=== PATIENT | female | born 1960 | race Caucasian/White ===

== ENCOUNTER → 2017-11-13 | Outpatient (CLI) | payer OTHER ==
[~2017-11-13] MED LIST: ACEBUTCAFT PO; ALBU90OI INH; AMOCLA875 PO; ASCO1ER PO; ATEN100 PO; ATEN25 PO; ATEN50 PO; ATOR10 PO; Apap-Butalbita1 EACH PO; Atenolol25 MG PO; BISA10S PR; BISHYD10; BISHYD10 PO; BUSP5 PO; CEPH500 PO; CETI10 PO; CIPHYDOTSU RIGHTEAR; CITA20 PO; CLIN300 PO; CLON.1 PO; CLON.2 PO; CLON.2TP TOP; COMPAZINE10 MG PO; DOCCAL240 PO; DOCU100 PO; Dazidox10 MG PO; Duoneb 2.5-0.5 M3 ML IH; ESTNOR PO; ESTR2 PO; FLUO10 PO; FLUT.05NI; FURO20 PO; GABA600 PO; GABA800 PO; GLIM2 PO; Glucophage1000 MG PO; HYDACE10B PO; HYDACE5 PO; HYDACE5325 PO; IBUP800 PO; INS70/30PN SC; INSUASPI SC; INSULANI SC; INSULANPEN SC; IRBE150 PO; LIDO2L MM; LINE600 PO; MAGN84 PO; MELA3 PO; METF500; METF500 PO; METH10 PO; MONT10T PO; MULTI VITAMIN1 EACH PO; Mobic15 MG PO; NYST100SU PO; OMEP20ER PO; OXYACE5T PO; OXYC30ER PO; OXYC5 PO; Oxycodone HCl5 M1; PENVK500 PO; PIOG15 PO; POLY17UD PO; POTCHL10ER PO; PROC10 PO; PROM25 PO; PROM25S PR; PSEUDOGEST; PSYL5.85P PO; Prilosec Otc20 MG PO; RANI150 PO; RXHYDACE PO; Restoril30 MG PO; SIME80CH PO; SULTRIDS PO; Senna8.6 MG PO; TEMA15 PO; TEMA30 PO; TOCO1000 PO; Vitamin C100 M1 PO; ZINC15 PO; [UNRECOGNIZED DRUG - OTHER] PO; furosemide
== END | disposition home or self-care (01) ==
LOC: LAB EV 15:19
DX: L08.9 Local infection of the skin and subcutaneous tissue, unspecified (principal)
CPT/HCPCS: 87070; 87205

== ENCOUNTER → 2017-12-23 | Outpatient (CLI) | payer OTHER ==
[~2017-12-23] MED LIST changes: -Atenolol25 MG PO; -Mobic15 MG PO
== END | disposition home or self-care (01) ==
LOC: LAB 13:30 → LAB SHORT 13:30
DX: H60.91 Unspecified otitis externa, right ear (principal)
CPT/HCPCS: 87070; 87077; 87102; 87147; 87186; 87205; 87252; 87254

== ENCOUNTER → 2018-03-04 | Outpatient (CLI) | payer OTHER | LOC: LAB SHORT 18:07 → LAB 18:07 | DX: H60.63 Unspecified chronic otitis externa, bilateral (principal); H66.93 Otitis media, unspecified, bilateral | CPT/HCPCS: 87070; 87205 ==

== ENCOUNTER 2018-06-09 21:54 | Emergency (ER) | payer OTHER ==
[~2018-06-09] VITALS: Ht 165.1 cm; Wt 128.8 kg
[2018-06-09] MEDS ORDERED: BUSP5 PO (23:19)
[2018-06-09] MEDS ORDERED: Mobic15 MG PO (23:20)
[2018-06-09] MEDS ORDERED: TEMA30 PO (23:20)
[2018-06-09] MEDS ORDERED: Atenolol25 MG PO (23:21)
== END 2018-06-10 00:10 | disposition home or self-care (01) ==
LOC: ER 21:54
DX: S61.412A Laceration without foreign body of left hand, initial encounter (principal); E11.9 Type 2 diabetes mellitus without complications; Z79.899 Other long term (current) drug therapy; Z79.4 Long term (current) use of insulin; W26.8XXA Contact with other sharp object(s), not elsewhere classified, initial encounter
CPT/HCPCS: 12001; 99282

== ENCOUNTER 2018-12-29 13:11 | Observation (INO) | payer OTHER ==
[~2018-12-29] VITALS: Ht 165.1 cm; Wt 159.0 kg
[~2018-12-29 13:11] MED LIST changes: -ALBU90OI INH; -ATOR10 PO; +Atenolol25 MG PO; -Duoneb 2.5-0.5 M3 ML IH; -MULTI VITAMIN1 EACH PO; -OXYC5 PO; -PSYL5.85P PO; -Senna8.6 MG PO
[2018-12-29 16:21] LABS: BASOPHILS ABSOLUTE AUTO 0.07 K/mm3 (0.00-0.23); BASOPHILS PERCENT AUTO 1 % (0-2); EOSINOPHILS ABSOLUTE AUTO 0.13 K/mm3 (0.00-0.68); EOSINOPHILS PERCENT AUTO 1 % (0-6); Hematocrit 39.9 % (33.0-51.0); IMMATURE GRAN ABSOLUTE AUTO 0.09 K/mm3 (0.00-0.10); IMMATURE GRAN PERCENT AUTO 1 % (0-1); LYMPHOCYTES ABSOLUTE AUTO 1.43 K/mm3 (0.84-5.20); LYMPHOCYTES PERCENT AUTO 10 % (21-46); MONOCYTES ABSOLUTE AUTO 0.73 K/mm3 (0.16-1.47); MONOCYTES PERCENT AUTO 5 % (4-13); Mean Corpuscular HGB 29.9 pg (26.0-34.0); Mean Corpuscular HGB Conc 32.6 g/dL (31.5-36.5); Mean Corpuscular Volume 92 fL (80-100); Mean Platelet Volume 11.5 fL (9.1-12.4); NEUTROPHILS ABSOLUTE AUTO 12.15 K/mm3 (1.96-9.15); NEUTROPHILS PERCENT AUTO 83 % (41-73); Platelet Count 241 K/mm3 (150-400); RDW Coefficient Variation 12.7 % (11.7-14.2); RDW Standard Deviation 42.3 fL (35.1-46.3); Red Blood Cell Count 4.35 M/mm3 (3.80-5.20)
[2018-12-29 16:42] LABS: Alanine Aminotransfer (ALT/SGP 21 U/L (12-78); Albumin/Globulin Ratio 0.9 (0.8-1.8); Alk Phos 73 U/L (50-136); Anion Gap 11 mmol/L (6-16); Aspartate Aminotrans (AST/SGOT 13 U/L (12-37); Bilirubin, Total 0.3 mg/dL (0.1-1.0); Blood Urea Nitrogen 18 mg/dL (8-24); Bun/Creatinine Ratio 31.9 (12.0-20.0); CO2, Blood 27 mmol/L (21-32); Chloride, Blood 99 mmol/L (98-108); Creatinine, Blood 0.56 mg/dL (0.40-1.00); Globulin, Blood 3.4 g/dL (2.2-4.0); Glomerular Filtration Rate >60 (60-); Glucose, Blood 238 mg/dL (70-99); Sodium, Blood 137 mmol/L (136-145); Total Protein, Blood 6.4 g/dL (6.4-8.2)
[2018-12-29] MEDS ORDERED: ALBU90OI INH (18:09)
[2018-12-29] MEDS ORDERED: PANT40 PO (18:10)
[2018-12-29] MEDS ORDERED: Prozac40 MG PO (18:12)
[2018-12-29] MEDS ORDERED: ATEN100 PO (18:13)
[2018-12-29] MEDS ORDERED: CHLO25B PO (18:14)
[2018-12-29] MEDS ORDERED: Mobic15 MG PO (18:16)
[2018-12-29] MEDS ORDERED: Pseudoephedrine30 MG PO (18:16)
[2018-12-29] MEDS ORDERED: CHOL10002 PO (18:17)
[2018-12-29] MEDS ORDERED: MONT10T PO (18:18)
[2018-12-29] MEDS ORDERED: BASAGLAR K100 UNIT/1 SC (18:21)
[2018-12-29] MEDS ORDERED: GABA800 PO (18:21)
[2018-12-29] MEDS ORDERED: ATOR10 PO (18:22)
[2018-12-29] MEDS ORDERED: Metformin HCl500 MG PO (18:25)
[2018-12-29] MEDS ORDERED: CLON.1 PO (18:26)
[2018-12-29] MEDS ORDERED: OXYC5 PO (18:31)
[2018-12-29] MEDS ORDERED: TEMA30 PO (18:33)
[2018-12-29] MEDS ORDERED: ALBU2.5V5 NEB (18:39)
[2018-12-29] MEDS ORDERED: Senna8.6 MG PO (18:40)
[2018-12-29] MEDS ORDERED: MULTI VITAMIN1 EACH PO (18:40)
[2018-12-29] MEDS ORDERED: Novolog Fl100 UNIT/1 SC (18:44)
[2018-12-29] MEDS ORDERED: Metamucil Smooth1 EA PO (18:50)
--- NOTE | 2018-12-29 18:51 | NUR ---
PT ARRIVED TO UNIT FROM ED TRANSFERRED PT FROM [facility] TO BED. PT ABLE TO TURN SIDE TO SIDE WELL. REPORTS PAIN 7/10; MEDICATED PER ORDERS FOR LLE PAIN. ABLE TO WIGGLE TOES. PPP. KNEE IMMOBIZER IN PLACED. PT HAS DIME SIZED BRUISE TO R HIP. CALL LUNGS DIM IN BASES. RESPIRATIONS EASY ON 2L NC. HRR. BT X4. SPOUSE AT BEDSIDE.
[2018-12-29] MEDS ORDERED: AMLO5 PO (18:53)
[2018-12-30 04:30] LABS: BASOPHILS ABSOLUTE AUTO 0.04 K/mm3 (0.00-0.23); BASOPHILS PERCENT AUTO 0 % (0-2); EOSINOPHILS ABSOLUTE AUTO 0.18 K/mm3 (0.00-0.68); EOSINOPHILS PERCENT AUTO 2 % (0-6); Hematocrit 38.5 % (33.0-51.0); Hemoglobin 12.3 g/dL (11.5-16.0); IMMATURE GRAN ABSOLUTE AUTO 0.07 K/mm3 (0.00-0.10); IMMATURE GRAN PERCENT AUTO 1 % (0-1); LYMPHOCYTES ABSOLUTE AUTO 2.41 K/mm3 (0.84-5.20); LYMPHOCYTES PERCENT AUTO 24 % (21-46); MONOCYTES ABSOLUTE AUTO 0.89 K/mm3 (0.16-1.47); MONOCYTES PERCENT AUTO 9 % (4-13); Mean Corpuscular HGB Conc 31.9 g/dL (31.5-36.5); Mean Corpuscular Volume 94 fL (80-100); Mean Platelet Volume 11.4 fL (9.1-12.4); NEUTROPHILS ABSOLUTE AUTO 6.45 K/mm3 (1.96-9.15); NEUTROPHILS PERCENT AUTO 64 % (41-73); Platelet Count 234 K/mm3 (150-400); RDW Coefficient Variation 12.8 % (11.7-14.2); RDW Standard Deviation 43.8 fL (35.1-46.3); White Blood Cell Count 10.04 K/mm3 (4.00-11.30)
[2018-12-30 04:51] LABS: Alanine Aminotransfer (ALT/SGP 22 U/L (12-78); Albumin/Globulin Ratio 0.9 (0.8-1.8); Alk Phos 75 U/L (50-136); Anion Gap 10 mmol/L (6-16); Aspartate Aminotrans (AST/SGOT 12 U/L (12-37); Bilirubin, Total 0.5 mg/dL (0.1-1.0); Blood Urea Nitrogen 18 mg/dL (8-24); Bun/Creatinine Ratio 32.7 (12.0-20.0); CO2, Blood 31 mmol/L (21-32); Calcium, Blood 8.4 mg/dL (8.5-10.1); Chloride, Blood 100 mmol/L (98-108); Creatinine, Blood 0.55 mg/dL (0.40-1.00); Globulin, Blood 3.4 g/dL (2.2-4.0); Glomerular Filtration Rate >60 (60-); Glucose, Blood 168 mg/dL (70-99); Potassium, Blood 3.4 mmol/L (3.5-5.5); Sodium, Blood 141 mmol/L (136-145); Total Protein, Blood 6.4 g/dL (6.4-8.2)
--- NOTE | 2018-12-30 15:12 | NUR ---
Patient was lying in bed and alert when I entered the patient's room. Patient welcomed me to sit down after I introduced myself. Patient openly shared about her past addictions, her family unit complications and her alex. Patient owes all her strength, recovery and her hope to her God. I listened empathically, conducted a life review, provided pastoral student success counselor and provided prayer. I also provided patient witha large print Bible upon her request. Patient responded well to all interventions and stated that the prayer was very encouraging. Patient thanked me for the visit.
--- NOTE | 2018-12-30 18:08 | NUR ---
SHIFT SUMMARY PT HAD MRI COMPLETED TODAY. DR RAMOS TO TAKE OVER ORTHO CARE OF PATIENT. PAIN MANAGEMENT WAS A STRUGGLE BUT PATIENT DROWSY AT TIMES AND APPEARS COMFORTABLE WHEN VISITNG WITH FAMILY BUT NEVER RATES PAIN < 5/10. NEURO CHECKS WNL T/O SHIFT.
--- NOTE | 2018-12-31 04:43 | NUR ---
PT HAD NO ACUTE CHANGES T/O NIGHT. PAIN MGD PER EMAR, NEURO CHECKS UNCHANGED. SWELLING IS MORE IN UPPER THIGH VS LOWER LEG. PT DENIES CHANGES IN N/T, CAP REFILL BRISK. IMMOBILIZER IN PLACE, LLE ELEVATED IN BED. PT ASSISTING W/REPOSITIONING IN BED. PT USING 2LO2 NC PRN PER BASELINE, DENIES SOB. PT USING CALL LIGHT FOR ASSISTANCE, WILL CONT TO MONITOR UNTIL REP GIVEN TO ONCOMING RN.
[2018-12-31 05:58] LABS: BASOPHILS ABSOLUTE AUTO 0.06 K/mm3 (0.00-0.23); BASOPHILS PERCENT AUTO 1 % (0-2); EOSINOPHILS ABSOLUTE AUTO 0.21 K/mm3 (0.00-0.68); EOSINOPHILS PERCENT AUTO 2 % (0-6); Hematocrit 36.2 % (33.0-51.0); Hemoglobin 11.7 g/dL (11.5-16.0); IMMATURE GRAN ABSOLUTE AUTO 0.15 K/mm3 (0.00-0.10); IMMATURE GRAN PERCENT AUTO 1 % (0-1); LYMPHOCYTES ABSOLUTE AUTO 2.38 K/mm3 (0.84-5.20); LYMPHOCYTES PERCENT AUTO 22 % (21-46); MONOCYTES ABSOLUTE AUTO 1.14 K/mm3 (0.16-1.47); MONOCYTES PERCENT AUTO 11 % (4-13); Mean Corpuscular HGB 29.7 pg (26.0-34.0); Mean Corpuscular HGB Conc 32.3 g/dL (31.5-36.5); Mean Corpuscular Volume 92 fL (80-100); Mean Platelet Volume 11.6 fL (9.1-12.4); NEUTROPHILS ABSOLUTE AUTO 6.89 K/mm3 (1.96-9.15); NEUTROPHILS PERCENT AUTO 64 % (41-73); Platelet Count 188 K/mm3 (150-400); RDW Coefficient Variation 12.5 % (11.7-14.2); RDW Standard Deviation 41.9 fL (35.1-46.3); Red Blood Cell Count 3.94 M/mm3 (3.80-5.20); White Blood Cell Count 10.83 K/mm3 (4.00-11.30)
[2018-12-31 06:17] LABS: Anion Gap 6 mmol/L (6-16); Blood Urea Nitrogen 11 mg/dL (8-24); Bun/Creatinine Ratio 22.2 (12.0-20.0); CO2, Blood 35 mmol/L (21-32); Calcium, Blood 8.3 mg/dL (8.5-10.1); Chloride, Blood 94 mmol/L (98-108); Glomerular Filtration Rate >60 (60-); Glucose, Blood 195 mg/dL (70-99); Potassium, Blood 3.4 mmol/L (3.5-5.5); Sodium, Blood 135 mmol/L (136-145)
[2018-12-31] MEDS ORDERED: ACET325 PO (15:05)
[2018-12-31] MEDS ORDERED: Micro-K10 MEQ PO (15:06)
[2018-12-31] MEDS ORDERED: Humalog100 UNIT/1 SC (15:06)
[2018-12-31] MEDS ORDERED: GAVILAX17 GM PO (15:07)
--- NOTE | 2018-12-31 16:16 | NUR ---
I entered patient's room and found patient lying in bed and alert with her , Chris, bedside. Patient shared with me about the plans for discharge this day and then told me many stories of alex and their family. I provided inspirational quotes from the Bible, companionship and prayer. Patient and Bill responded well to all interventions and showed signs of renewed alex.
--- NOTE | 2018-12-31 19:07 | NUR ---
DISCHARGE PT DISCHARGED HOME AT APROX 1900. PT GIVEN WRITTEN AND VERBAL DISCHARGE INSTRUCTIONS AND VERBALIZED UNDERSTANDING. WRITTEN RX FOR PAIN MEDICATION GIVEN TO PT. WHEELCHAIR AND OTHER MEDICAL SUPPLIES PICKED UP BY . IV'S REMOVED, PT TOLERATED WELL. APPOINTMENTS FOR FOLLOW UP WITH DR RAMOS GIVEN TO PATIENT.
== END 2018-12-31 19:06 | disposition home or self-care (01) ==
LOC: ER 13:11 → SURS 13:12 → ERHOLD 13:12 → SURS 17:36
PROVIDERS: Emergency Medicine; ADMIT Family Medicine
DX: S83.195A Other dislocation of left knee, initial encounter (principal); S83.512A Sprain of anterior cruciate ligament of left knee, initial encounter; S83.522A Sprain of posterior cruciate ligament of left knee, initial encounter; I10 Essential (primary) hypertension; E11.9 Type 2 diabetes mellitus without complications; I25.10 Atherosclerotic heart disease of native coronary artery without angina pectoris; F32.9 Major depressive disorder, single episode, unspecified; F41.9 Anxiety disorder, unspecified; M19.90 Unspecified osteoarthritis, unspecified site; J45.909 Unspecified asthma, uncomplicated; E78.5 Hyperlipidemia, unspecified; E66.01 Morbid (severe) obesity due to excess calories; Z91.048 Other nonmedicinal substance allergy status; Z88.8 Allergy status to other drugs, medicaments and biological substances; Z88.5 Allergy status to narcotic agent; Z88.1 Allergy status to other antibiotic agents; Z91.018 Allergy to other foods; Z68.39 Body mass index [BMI] 39.0-39.9, adult; W00.0XXA Fall on same level due to ice and snow, initial encounter
CPT/HCPCS: 27550; 36415; 73552; 73560-LT; 73706; 73721; 80048; 80053; 82947; 85025; 87081; 96374-59; 96375-59; 97162; 97530; 99152; 99285-25; G0378; J1815; J2405; J3010; J7030; Q9967

== ENCOUNTER → 2019-07-14 | Outpatient (CLI) | payer OTHER ==
[~2019-07-14] MED LIST changes: +ACET325 PO; +ALBU2.5V5 NEB; +ALBU90OI INH; +AMLO5 PO; +ATOR10 PO; +BASAGLAR K100 UNIT/1 SC; +CHLO25B PO; +CHOL10002 PO; +GAVILAX17 GM PO; +Humalog100 UNIT/1 SC; +MULTI VITAMIN1 EACH PO; +Metamucil Smooth1 EA PO; +Metformin HCl500 MG PO; +Micro-K10 MEQ PO; +Mobic15 MG PO; +Novolog Fl100 UNIT/1 SC; +OXYC5 PO; +PANT40 PO; +Prozac40 MG PO; +Pseudoephedrine30 MG PO; +Senna8.6 MG PO
[2019-07-14 13:26] LABS: U Amphetamine Screen Not Detected; U Barbituate Screen Not Detected; U Benzodiazapine Screen DETECTED; U Cannabinoids Screen DETECTED; U Cocaine Screen Not Detected; U Methadone Screen Not Detected; U Methamphetamine Screen Not Detected; U Opiates Screen Not Detected; U Phencyclidine Screen Not Detected
[2019-07-14 13:27] LABS: U Buprenorphine Screen Not Detected; U Oxycodone Screen Not Detected; U Propoxyphene Screen Not Detected
== END | disposition home or self-care (01) ==
LOC: LAB SHORT 12:28 → LAB 12:28
PROVIDERS: Nurse Practitioner Family
DX: G89.4 Chronic pain syndrome (principal)
CPT/HCPCS: G0480

== ENCOUNTER → 2020-10-05 | Outpatient (CLI) | payer OTHER | END | disposition home or self-care (01) | LOC: LAB SHORT 09:30 → LAB 09:30 | DX: J34.89 Other specified disorders of nose and nasal sinuses (principal) | CPT/HCPCS: 87070; 87077; 87147; 87186 ==

== ENCOUNTER 2020-12-07 08:45 | Day surgery (SDC) | payer OTHER | END 2020-12-07 23:11 | disposition home or self-care (01) | LOC: MOI MAM 08:45 | DX: D24.2 Benign neoplasm of left breast (principal); R92.8 Other abnormal and inconclusive findings on diagnostic imaging of breast | CPT/HCPCS: 19081; 88305 ==

== ENCOUNTER → 2023-01-02 | Outpatient (CLI) | payer OTHER | END | disposition home or self-care (01) | LOC: LAB 15:00 → LAB SHORT 15:00 | PROVIDERS: Nurse Practitioner Family | DX: Z51.81 Encounter for therapeutic drug level monitoring (principal); Z79.899 Other long term (current) drug therapy | CPT/HCPCS: G0480 ==

== ENCOUNTER → 2023-04-03 | Outpatient (CLI) | payer OTHER | END | disposition home or self-care (01) | LOC: LAB 12:39 → LAB SHORT 12:39 | PROVIDERS: Nurse Practitioner Family | DX: Z51.81 Encounter for therapeutic drug level monitoring (principal); Z79.899 Other long term (current) drug therapy | CPT/HCPCS: G0480 ==

== ENCOUNTER → 2023-07-03 | Outpatient (CLI) | payer OTHER | LOC: LAB SHORT 09:40 → LAB 09:40 | DX: N39.0 Urinary tract infection, site not specified (principal) | CPT/HCPCS: 87077; 87086; 87147; 87186 ==

== ENCOUNTER → 2023-10-30 | Outpatient (CLI) | payer OTHER ==
[2023-10-31 12:30] LABS: Candida species (DNA Probe) Positive (NEGATIVE); G. vaginalis (DNA Probe) Negative (NEGATIVE); T. vaginalis (DNA Probe) Negative (NEGATIVE)
== END ==
LOC: LAB 15:35 → LAB SHORT 15:35
PROVIDERS: Nurse Practitioner Family
DX: B37.31 Acute candidiasis of vulva and vagina (principal)
CPT/HCPCS: 87480; 87510; 87660